=== PATIENT | male | born 1985 | race Native Hawaiian/Other Pacific Islander ===

== ENCOUNTER 2016-10-03 07:32 | Outpatient (CLI) | payer BC ==
[~2016-10-03 07:32] MED LIST: DONNATA1 PO; LISI20TA24 PO; PHENELX32 PO; PROAIR HFA IN
== END 2016-10-03 19:04 | disposition home or self-care (01) ==
LOC: NM 07:32
DX: R07.89 Other chest pain (principal); E10.9 Type 1 diabetes mellitus without complications; I10 Essential (primary) hypertension; R53.83 Other fatigue
CPT/HCPCS: 93306; A9500

== ENCOUNTER 2019-05-15 14:51 | Outpatient (CLI) | payer OTHER | END 2019-05-15 19:45 | disposition home or self-care (01) | LOC: RAD 14:51 | DX: M79.672 Pain in left foot (principal) ==